=== PATIENT | male | born 1955 | race Caucasian/White ===

== ENCOUNTER 2018-11-16 14:13 | Observation (INO) | payer OTHER ==
[~2018-11-16] VITALS: Ht 182.9 cm; Wt 136.1 kg
[~2018-11-16 14:13] MED LIST: ASPI325 PO; ATOR40TA PO; CLOP75 PO; METO25ER PO; MULVITMIND PO; PSEU120ER PO; Percocet 5-3251 EACH PO; XARELTO10 MG PO
[2018-11-16] MEDS ORDERED: THERA1 EACH PO (14:24)
[2018-11-16] MEDS ORDERED: ASPI325 PO (14:24)
[2018-11-16 14:55] LABS: BASOPHILS ABSOLUTE AUTO 0.03 K/mm3 (0.00-0.23); BASOPHILS PERCENT AUTO 0 % (0-2); EOSINOPHILS ABSOLUTE AUTO 0.02 K/mm3 (0.00-0.68); EOSINOPHILS PERCENT AUTO 0 % (0-6); Hematocrit 39.3 % (37.0-53.0); Hemoglobin 13.8 g/dL (13.5-17.5); IMMATURE GRAN ABSOLUTE AUTO 0.05 K/mm3 (0.00-0.10); IMMATURE GRAN PERCENT AUTO 0 % (0-1); LYMPHOCYTES ABSOLUTE AUTO 1.08 K/mm3 (0.84-5.20); LYMPHOCYTES PERCENT AUTO 8 % (21-46); MONOCYTES PERCENT AUTO 11 % (4-13); Mean Corpuscular HGB Conc 35.1 g/dL (31.5-36.5); Mean Corpuscular Volume 85 fL (80-100); NEUTROPHILS ABSOLUTE AUTO 10.53 K/mm3 (1.96-9.15); NEUTROPHILS PERCENT AUTO 80 % (41-73); Platelet Count 192 K/mm3 (150-400); RDW Coefficient Variation 12.8 % (11.7-14.2); RDW Standard Deviation 39.8 fL (35.1-46.3); White Blood Cell Count 13.21 K/mm3 (4.00-11.30)
[2018-11-16 15:20] LABS: Alanine Aminotransfer (ALT/SGP 46 U/L (12-78); Albumin, Blood 3.3 g/dL (3.4-5.0); Albumin/Globulin Ratio 0.8 (0.8-1.8); Alk Phos 73 U/L (50-136); Anion Gap 11 mmol/L (6-16); Aspartate Aminotrans (AST/SGOT 34 U/L (12-37); Bilirubin, Total 1.3 mg/dL (0.1-1.0); Blood Urea Nitrogen 10 mg/dL (8-24); Bun/Creatinine Ratio 12.5 (12.0-20.0); CO2, Blood 22 mmol/L (21-32); Calcium, Blood 7.9 mg/dL (8.5-10.1); Chloride, Blood 90 mmol/L (98-108); Globulin, Blood 4.2 g/dL (2.2-4.0); Glomerular Filtration Rate >60 (60-); Glucose, Blood 112 mg/dL (70-99); Potassium, Blood 3.9 mmol/L (3.5-5.5); Sodium, Blood 123 mmol/L (136-145); Total Protein, Blood 7.5 g/dL (6.4-8.2); Troponin I <0.015 ng/mL (0.000-0.040)
[2018-11-16 16:37] LABS: Influenza A Negative (NEGATIVE); Influenza B Negative (NEGATIVE)
--- NOTE | 2018-11-17 04:32 | NUR ---
SHIFT SUMMARY PT ARRIVED TO FLOOR WITH NO COMPLAINTS. PT HAS SLEPT T/O NIGHT WITH FREQUENT VOIDS. PT DENIES ANY SOB OR CX PAIN. PT IS CURRENTLY SLEEPING AND BREATHING EASY. CALL LIGHT IN REACH.
[2018-11-17 05:58] LABS: Anion Gap 10 mmol/L (6-16); Blood Urea Nitrogen 13 mg/dL (8-24); Bun/Creatinine Ratio 15.3 (12.0-20.0); CO2, Blood 21 mmol/L (21-32); Calcium, Blood 7.9 mg/dL (8.5-10.1); Chloride, Blood 91 mmol/L (98-108); Creatinine, Blood 0.85 mg/dL (0.60-1.20); Glomerular Filtration Rate >60 (60-); Glucose, Blood 113 mg/dL (70-99); Potassium, Blood 3.6 mmol/L (3.5-5.5); Sodium, Blood 122 mmol/L (136-145); Troponin I <0.015 ng/mL (0.000-0.040)
[2018-11-17 09:16] LABS: Uric Acid, Blood 5.2 mg/dL (3.5-7.2)
[2018-11-17] MEDS ORDERED: Prinivil10 MG PO (11:44)
[2018-11-17] MEDS ORDERED: FURO20 PO (11:45)
[2018-11-17] MEDS ORDERED: POTA10T PO (11:45)
[2018-11-17] MEDS ORDERED: [UNRECOGNIZED DRUG - REMARK] PO (11:46)
--- NOTE | 2018-11-17 12:24 | NUR ---
D/C INSTRUCTIONS PROVIDED AND EXPLAINED. MEDS FAXED TO JA[facility]). IV AND TELE REMOVED. PT D/C VIA AMBULATION AT 1210.
== END 2018-11-17 12:10 | disposition home or self-care (01) ==
LOC: ER 14:13 → MEDS 14:14 → ENPENDDIS 11-17 11:00 → MEDS 11-17 12:10
PROVIDERS: Internal Medicine Nephrology; Physician Assistant; ADMIT Internal Medicine
DX: R07.9 Chest pain, unspecified (principal); E87.1 Hypo-osmolality and hyponatremia; I10 Essential (primary) hypertension; R73.9 Hyperglycemia, unspecified; I25.10 Atherosclerotic heart disease of native coronary artery without angina pectoris; Z95.5 Presence of coronary angioplasty implant and graft; Z79.82 Long term (current) use of aspirin; Z79.899 Other long term (current) drug therapy; Z79.01 Long term (current) use of anticoagulants
CPT/HCPCS: 36415; 71046; 80048; 80053; 82533; 82947; 83036; 83880; 83930; 83935; 84295; 84300; 84443; 84484; 84550; 85025; 87804; 93005; 93010; 96372; 99285-25; G0378; J1650

== ENCOUNTER 2020-12-06 07:36 | Day surgery (SDC) | payer OTHER ==
[~2020-12-06] VITALS: Ht 180.3 cm; Wt 136.0 kg
[~2020-12-06 07:36] MED LIST changes: +Aspir 8181 MG; +FURO20 PO; +POTA10T PO; +Prinivil10 MG PO; +THERA1 EACH PO; +[UNRECOGNIZED DRUG - REMARK] PO
[2020-12-06] MEDS ORDERED: PSEU120ER (08:11)
[2020-12-06] MEDS ORDERED: TAMS.4ER (08:11)
[2020-12-06] MEDS ORDERED: HYDCHL25 (08:11)
[2020-12-06] MEDS ORDERED: ATOR20 (08:12)
--- NOTE | 2020-12-06 11:25 | NUR ---
10CC AIR REMOVED FROM R WRIST TR BAND. -BLEEDING OR SWELLING. PT UP TO THE BATHROOM /C SBA.
--- NOTE | 2020-12-06 12:17 | NUR ---
R WRIST TR BAND REMOVED. PUNCTURE AREA CLEANED /C NS, CLOTH DOT DRSG PLACED, AND R WRIST SPLINT REAPPLIED. -BLEEDING OR SWELLING. IV REMOVED.
--- NOTE | 2020-12-06 12:19 | NUR ---
PT VERBALIZED UNDERSTANDING OF WRITTEN AND VERBAL D/C INST.
== END 2020-12-06 12:00 | disposition home or self-care (01) ==
LOC: MHTC 07:36
DX: I25.10 Atherosclerotic heart disease of native coronary artery without angina pectoris (principal); I71.2 Thoracic aortic aneurysm, without rupture; R06.09 Other forms of dyspnea; I10 Essential (primary) hypertension; E78.5 Hyperlipidemia, unspecified; E66.9 Obesity, unspecified; R94.39 Abnormal result of other cardiovascular function study; Z79.82 Long term (current) use of aspirin; Z79.899 Other long term (current) drug therapy
CPT/HCPCS: 76937; 93458; 99152; 99153; C1769; C1894; J1644; J2250; J3010; J7030; Q9967

== ENCOUNTER 2021-07-11 09:51 | Day surgery (SDC) | payer OTHER ==
[~2021-07-11] VITALS: Ht 180.3 cm; Wt 147.1 kg
[~2021-07-11 09:51] MED LIST changes: +ASPI325EC PO; +ATOR20; +CENTRUM SILVER1 EAC2 PO; +HYDCHL25; +HYDCHL25 PO; +LISI20 PO; +PSEU120ER; +TAMS.4ER; +TAMS.4ER PO; +Viagra100 MG PO
== END 2021-07-11 12:30 | disposition home or self-care (01) ==
LOC: ORSCSDS 09:51
PROVIDERS: Orthopaedic Surgery
PROC: 0PBS0ZZ Excision of Left Thumb Phalanx, Open Approach (ICD-10-PCS; principal; 2021-07-11 11:30)
DX: M25.742 Osteophyte, left hand (principal); I10 Essential (primary) hypertension; E78.5 Hyperlipidemia, unspecified; I25.2 Old myocardial infarction; G47.33 Obstructive sleep apnea (adult) (pediatric); Z79.899 Other long term (current) drug therapy; Z79.82 Long term (current) use of aspirin
CPT/HCPCS: J0690; J7120

== ENCOUNTER 2021-09-19 10:02 | Day surgery (SDC) | payer OTHER ==
[~2021-09-19] VITALS: Ht 180.3 cm; Wt 139.1 kg
== END 2021-09-19 14:41 | disposition home or self-care (01) ==
LOC: ORSCSDS 10:02
PROVIDERS: Internal Medicine Gastroenterology
PROC: 0DBP8ZX Excision of Rectum, Via Natural or Artificial Opening Endoscopic, Diagnostic (ICD-10-PCS; principal; 2021-09-19 12:45)
PROC: 0DBL8ZX Excision of Transverse Colon, Via Natural or Artificial Opening Endoscopic, Diagnostic (ICD-10-PCS; principal; 2021-09-19 12:45)
PROC: 0DBN8ZX Excision of Sigmoid Colon, Via Natural or Artificial Opening Endoscopic, Diagnostic (ICD-10-PCS; principal; 2021-09-19 12:45)
PROC: 0DJ08ZZ Inspection of Upper Intestinal Tract, Via Natural or Artificial Opening Endoscopic (ICD-10-PCS; principal; 2021-09-19 12:45)
DX: R19.5 Other fecal abnormalities (principal); D12.3 Benign neoplasm of transverse colon; D12.5 Benign neoplasm of sigmoid colon; D12.8 Benign neoplasm of rectum; Z79.82 Long term (current) use of aspirin; I10 Essential (primary) hypertension; I25.2 Old myocardial infarction; G47.33 Obstructive sleep apnea (adult) (pediatric); Z79.899 Other long term (current) drug therapy; E66.01 Morbid (severe) obesity due to excess calories; Z68.41 Body mass index [BMI] 40.0-44.9, adult; I25.10 Atherosclerotic heart disease of native coronary artery without angina pectoris
CPT/HCPCS: 88305; J2250; J2704; J3010; J7030; J7120

== ENCOUNTER → 2022-06-22 | Outpatient (CLI) | payer OTHER | LOC: LAB 12:07 → LAB SHORT 12:07 | DX: N39.0 Urinary tract infection, site not specified (principal) | CPT/HCPCS: 87086 ==

== ENCOUNTER 2024-05-26 10:17 | Day surgery (SDC) | payer OTHER ==
[~2024-05-26] VITALS: Ht 182.9 cm; Wt 147.5 kg
[~2024-05-26 10:17] MED LIST changes: +ASPI81CH PO; +Lactated Ringer's 1,000 ML IV ONE; +METFORMIN HCL500 MG PO; +SUDOGEST PO; +TRAM50 PO
[2024-05-26] MEDS ORDERED: FURO20 (10:53)
[2024-05-26] MEDS ORDERED: MULTI VITAMIN200 MCG (10:53)
[2024-05-26] MEDS ORDERED: Aspir 8181 MG (10:53)
[2024-05-26] MEDS ORDERED: propofoL 50 ML IV ONE ×2 (11:57→12:36)
[2024-05-26] MEDS ORDERED: Lactated Ringer's 1,000 ML IV ONE (12:03)
[2024-05-26 13:46] VITALS: BP 127/86
== END 2024-05-26 13:40 | disposition home or self-care (01) ==
LOC: ORSCSDS 10:17
PROVIDERS: Internal Medicine Gastroenterology
PROC: 0DBK8ZX Excision of Ascending Colon, Via Natural or Artificial Opening Endoscopic, Diagnostic (ICD-10-PCS; principal; 2024-05-26 11:45)
PROC: 0DBL8ZX Excision of Transverse Colon, Via Natural or Artificial Opening Endoscopic, Diagnostic (ICD-10-PCS; principal; 2024-05-26 11:45)
DX: Z12.11 Encounter for screening for malignant neoplasm of colon (principal); Z86.0100 Personal history of colon polyps, unspecified; D12.3 Benign neoplasm of transverse colon; K63.5 Polyp of colon; D12.2 Benign neoplasm of ascending colon; K64.4 Residual hemorrhoidal skin tags; K57.30 Diverticulosis of large intestine without perforation or abscess without bleeding; I71.9 Aortic aneurysm of unspecified site, without rupture; I25.2 Old myocardial infarction; E78.5 Hyperlipidemia, unspecified; E11.9 Type 2 diabetes mellitus without complications; G47.33 Obstructive sleep apnea (adult) (pediatric); I10 Essential (primary) hypertension; I25.10 Atherosclerotic heart disease of native coronary artery without angina pectoris; Z79.02 Long term (current) use of antithrombotics/antiplatelets; Z79.84 Long term (current) use of oral hypoglycemic drugs; Z79.82 Long term (current) use of aspirin; Z79.899 Other long term (current) drug therapy
CPT/HCPCS: 82947; 88305; J2704; J7120

== ENCOUNTER → 2024-08-25 | Outpatient (CLI) | payer OTHER ==
[~2024-08-25] MED LIST changes: +FURO20; -Lactated Ringer's 1,000 ML IV ONE; +MULTI VITAMIN200 MCG
== END ==
LOC: LAB 13:46 → LAB SHORT 13:46
DX: R30.0 Dysuria (principal)
CPT/HCPCS: 87086